=== PATIENT | female | born 1985 | race Caucasian/White ===

== ENCOUNTER → 2018-01-30 11:37 | Outpatient (REF) | payer OTHER, SELFPAY ==
[2018-01-30 20:12] LABS: Bilirubin Negative (Negative); Blood Negative (Negative); Clarity Clear; Glucose Negative (Negative); Ketones Negative (Negative); Leukocyte Esterase Negative (Negative); Nitrite Negative (Negative); Specific Gravity <= 1.005 (1.005-1.025); Urobilinogen 0.2 EU/dL (Up TO 0.2); pH 5.5 (5-8)
[2018-01-30 20:26] LABS: INR 0.9 (1.0-3.5); Prothrombin Time 9.1 sec (9.3-10.8)
[2018-01-30 20:32] LABS: Hemoglobin A1C 5.3 % (4.5-6.2)
[2018-01-30 20:37] LABS: ALT 21 U/L (12-78); AST 15 U/L (15-37); Albumin 4.1 g/dL (3.4-5.0); Alkaline Phosphatase 90 U/L (46-116); Anion Gap 8.8 mmol/L (3-11); BUN 4 mg/dL (7-18); Bacteria Rare HPF (Negative); Bilirubin, Total 0.2 mg/dL (0.2-1.0); C & S Indicated? C&S Done As Ordered; CO2 25.2 mmol/L (21.0-32.0); CREATININE 0.64 mg/dL (0.55-1.02); Calcium 9.3 mg/dL (8.5-10.1); Casts Negative LPF (Negative); Chloride 104 mmol/L (98-107); Crystals Negative HPF (Negative); Epithelial Cells Few HPF (Negative); Glucose 90 mg/dL (70-100); Mucus Negative (Negative); Potassium 4.2 mmol/L (3.5-5.1); RBC Negative (0-2); Sodium 138 mmol/L (136-145); TSH (W/Ref FT4) 0.89 uIU/mL (0.358-3.74)
[2018-01-31 16:33] LABS: Osmolality, Urine 78 mos/kg (150-1150)
[2018-01-31 16:50] LABS: Osmolality Serum 282 mos/kg (275-295)
== END ==
LOC: NCHCN 11:37
PROVIDERS: PCP Family Medicine; Visit Provider Nurse Practitioner
DX: R07.89 Other chest pain (principal); R06.00 Dyspnea, unspecified; R35.8 Other polyuria; R23.8 Other skin changes
CPT/HCPCS: 80053; 83935; 87077; 81003; 81015; 83036; 83930; 84443; 85610; 87086; 87186

== ENCOUNTER → 2018-02-03 08:56 | Outpatient (CLI) | payer OTHER, SELFPAY ==
--- NOTE | 2018-02-03 09:00 | MERGE_ITS ---
*[facility]* *[facility]* [address] [place] [address] Date of study: 02/03/2018 Transthoracic Echocardiography M-mode, complete 2D, complete spectral Doppler, and color Doppler *STUDY CONCLUSIONS* Impressions: No VSD identified. Summary: 1. Left ventricle: The cavity size was normal. Systolic function was normal. The estimated ejection fraction was 60-65%. Diastolic parameters were normal. 2. Mitral valve: There was mild regurgitation. 3. Right ventricle: The cavity size was normal. Wall thickness was normal. Systolic function was normal. 4. Atrial septum: No defect or patent foramen ovale was identified. 5. Inferior vena cava: The vessel was patent and normal in size. The respirophasic diameter changes were in the normal range (greater than or equal to 50%), consistent with normal central venous pressure. *PATIENT PRESENTATION* Height: 167.6cm ((66in) ) S/D Pressure: 119 / 26 Weight: 56.2kg ((123.7lb) ) BSA: 1.61m^2 Test start time: 09:11 AM. Test stop time: 10:11 AM. PERFORMING Unknown PERFORMING [facility] ENGAGEMENT LIAISON RT Shankar Krueger)(DUNG), [facility] ORDERING Mariann Arciniega REFERRING Mariann Arciniega *PROCEDURE DATA* Procedure information: The patient was identified by two identifiers. This study was interpreted by [facility]. Pertinent images and digital data are archived for permanent storage and are available for subsequent review. No prior study was available for comparison. Study status: Routine. Transthoracic echocardiography. M-mode, complete 2D, complete spectral Doppler, and color Doppler. A Transthoracic Echocardiogram was performed. Scanning was performed from the parasternal, apical, subcostal, and suprasternal notch acoustic windows. Images were obtained using an [id number] cardiac ultrasound machine. Image quality was adequate. Study completion: The patient tolerated the procedure well. History: PMH: Chest pain intermittent, hx of VSD, dyspnea. *CARDIAC ANATOMY* Left ventricle: The cavity size was normal. Systolic function was normal. The estimated ejection fraction was 60-65%. The transmitral flow pattern was normal. The deceleration time of the early transmitral flow velocity was normal. The pulmonary vein flow pattern was normal. The tissue Doppler parameters were normal. Diastolic parameters were normal. Aortic valve: Trileaflet. Doppler: There was no stenosis. There was no regurgitation. VTI ratio of LVOT to aortic valve: 0.74. Valve area (VTI): 2.3cm^2. Indexed valve area (VTI): 1.4cm^2/m^2. Peak velocity ratio of LVOT to aortic valve: 0.72. Valve area (Vmax): 2.2cm^2. Indexed valve area (Vmax): 1.4cm^2/m^2. Mean velocity ratio of LVOT to aortic valve: 0.77. Valve area (Vmean): 2.4cm^2. Indexed valve area (Vmean): 1.5cm^2/m^2. Mean gradient (S): 4.1mm Hg. Peak gradient (S): 7.5mm Hg. Aorta: Aortic root: The aortic root was normal in size. Ascending aorta: The ascending aorta was normal in size. Mitral valve: Doppler: There was no evidence for stenosis. There was mild regurgitation. Valve area by pressure half-time: 4.9cm^2. Indexed valve area by pressure half-time: 3cm^2/m^2. Peak gradient (D): 2.1mm Hg. Left atrium: The atrium was normal in size. Atrial septum: No defect or patent foramen ovale was identified. Right ventricle: The cavity size was normal. Wall thickness was normal. Systolic function was normal. Pulmonic valve: Doppler: There was no evidence for stenosis. There was mild regurgitation. Tricuspid valve: Doppler: There was mild regurgitation. Pulmonary artery: Poorly visualized. Pulmonary systolic pressure was in the range of 25mm Hg to 35mm Hg. Right atrium: The atrium was normal in size. Pericardium: There was no pericardial effusion. Systemic veins: Inferior vena cava: Well visualized. The vessel was patent and normal in size. The respirophasic diameter changes were in the normal range (greater than or equal to 50%), consistent with normal central venous pressure. Baseline ECG: Normal sinus rhythm. Measurements Left ventricle Value Reference LV ID, ED, PLAX 4.3 cm 3.5 - 6.0 LV ID, ES, PLAX 2.9 cm 2.1 - 4.0 LV PW thickness, ED, PLAX 0.8 cm LV end-diastolic volume, 1-p A2C 70 ml LV ejection fraction, 1-p A2C 67 % LV end-diastolic volume, 1-p A4C 75 ml LV ejection fraction, 1-p A4C 62 % LV e', lateral 0.201 m/sec LV E/e', lateral 4 LV e', medial 0.133 m/sec LV E/e', medial 5 LV e', average 0.167 m/sec LV E/e', average 4 Ventricular septum Value Reference IVS thickness, ED, PLAX 0.8 cm LVOT Value Reference LVOT ID, A-P 2.0 cm LVOT area 3.1 cm^2 LVOT peak velocity, S 0.99 m/sec LVOT mean velocity, S 0.74 m/sec LVOT VTI, S 19.9 cm LVOT peak gradient, S 3.9 mm Hg LVOT mean gradient, S 2.4 mm Hg Stroke volume (SV), LVOT DP 62 ml Stroke index (SV/bsa), LVOT DP 38 ml/m^2 Aortic valve Value Reference Aortic valve peak velocity, S 1.4 m/sec Aortic valve mean velocity, S 0.97 m/sec Aortic valve VTI, S 26.8 cm Aortic mean gradient, S 4.1 mm Hg Aortic peak gradient, S 7.5 mm Hg VTI ratio, LVOT/AV 0.74 Aortic valve area, VTI 2.3 cm^2 Velocity ratio, peak, LVOT/AV 0.72 Aortic valve area, peak velocity 2.2 cm^2 Velocity ratio, mean, LVOT/AV 0.77 Aortic valve area, mean velocity 2.4 cm^2 Aortic valve area/bsa, mean velocity 1.5 cm^2/m^2 Aorta Value Reference Aortic root ID, ED 2.6 cm Ascending aorta ID, A-P, S 2.5 cm RVOT Value Reference RVOT VTI, S 20.0 cm Left atrium Value Reference LA ID, A-P, ES 1.9 cm LA ID/bsa, A-P 1.2 cm/m^2 <=2.2 LA area, ES, A4C 12.1 cm^2 8.8 - 23.4 LA area, ES, A2C 11 cm^2 LA volume/bsa, ES, 1-p A4C 17 ml/m^2 LA volume, ES, 2-p 22 ml LA volume/bsa, ES, 2-p 14 ml/m^2 LA/aortic root ratio 0.73 Mitral valve Value Reference Mitral E-wave peak velocity 0.72 m/sec Mitral A-wave peak velocity 0.47 m/sec Mitral deceleration time 155 ms 150 - 230 Mitral pressure half-time 45 ms Mitral peak gradient, D 2.1 mm Hg Mitral E/A ratio, peak 1.53 Mitral valve area, PHT, DP 4.9 cm^2 Pulmonary veins Value Reference Pulmonary vein peak velocity, S 0.63 m/sec Pulmonary vein peak velocity, D 0.86 m/sec Pulmonary vein velocity ratio, peak, 0.73 S/D Pulmonary vein A-wave reversal peak 0.44 m/sec velocity Pulmonary vein A-wave reversal 144 ms duration Tricuspid valve Value Reference Tricuspid regurg peak velocity 2.5 m/sec Tricuspid peak RV-RA gradient 25.5 mm Hg Right atrium Value Reference RA area, ES, A4C 11.2 cm^2 8.3 - 19.5 Legend: (L) and (H) bertha values outside specified reference range. I have personally reviewed the images and have reviewed and edited the reported findings. Electronically signed by Chucky Bernal MD 02/03/2018 16:50
== END ==
PROVIDERS: PCP Family Medicine; Visit Provider Nurse Practitioner
DX: R07.9 Chest pain, unspecified (principal); R06.09 Other forms of dyspnea; I34.0 Nonrheumatic mitral (valve) insufficiency
CPT/HCPCS: 93306

== ENCOUNTER 2018-10-15 13:26 | Outpatient (REF) | payer SELFPAY ==
[2018-10-17 08:45] LABS: Prolactin 53.7 ng/ml
== END 2018-10-15 13:46 ==
LOC: LBN 13:26
PROVIDERS: PCP Family Medicine; Visit Provider Nurse Practitioner Psychiatric/Mental Health
DX: E22.1 Hyperprolactinemia (principal)
CPT/HCPCS: 84146

== ENCOUNTER 2020-07-22 15:23 | Outpatient (REF) | payer BC, SELFPAY ==
[2020-07-22 21:30] LABS: HCT 35.2 % (36.0-46.0); HGB 11.8 g/dL (11.2-15.7); MCH 29.9 pg (27.0-33.0); MCHC 33.5 % (32.0-36.0); MCV 89.1 fL (80-95); MPV 12.5 fL (8.0-11.0); Platelet Count 198 10^3/uL (130-400); RBC 3.95 10^6/uL (3.93-5.22); RDW 12.3 % (11.7-14.6); RDW-SD 40.7 fL; WBC 5.13 10^3/uL (4.4-10.8)
== END 2020-07-22 15:24 | disposition home or self-care (01) ==
LOC: NCHCN 15:23
PROVIDERS: PCP Family Medicine; Visit Provider Family Medicine
DX: D50.9 Iron deficiency anemia, unspecified (principal)
CPT/HCPCS: 85027

== ENCOUNTER 2021-02-10 17:11 | Outpatient (REF) | payer MEDICAID, SELFPAY ==
[2021-02-11 14:32] LABS: COVID-19 RT-PCR UVMMC Result Negative (Negative)
== END 2021-02-10 17:12 | disposition home or self-care (01) ==
LOC: NCHCN 17:11
PROVIDERS: PCP Family Medicine; Visit Provider Family Medicine
DX: Z20.822 Contact with and (suspected) exposure to COVID-19 (principal)
CPT/HCPCS: U0003

== ENCOUNTER 2021-04-17 13:34 | Outpatient (REF) | payer MEDICARE, MEDICAID, SELFPAY ==
[2021-04-17 22:26] LABS: Abs Immature Grans 0.02 10^3/uL (0.0-0.06); Absolute Basophil Count 0.06 10^3/uL (0.0-0.2); Absolute Eosinophil Count 0.33 10^3/uL (0.0-0.7); Absolute Lymphocyte Count 1.99 10^3/uL (1.2-3.4); Absolute Monocyte Count 0.57 10^3/uL (0.1-0.8); Absolute Neutrophil Count 3.27 10^3/uL (1.2-6.7); Eosinophils % 5.3; HCT 37.1 % (36.0-46.0); HGB 11.9 g/dL (11.2-15.7); Immature Grans % 0.3; Lymphocytes % 31.9; MCH 29.5 pg (27.0-33.0); MCHC 32.1 % (32.0-36.0); MCV 92.1 fL (80-95); Monocytes % 9.1; Neutrophils % 52.4; Nucleated RBC 0 %; Platelet Count 228 10^3/uL (130-400); RBC 4.03 10^6/uL (3.93-5.22); RDW 12.7 % (11.7-14.6); RDW-SD 43.3 fL; WBC 6.24 10^3/uL (4.4-10.8)
[2021-04-17 22:41] LABS: Iron 134 ug/dL (50-170); Total Iron Binding Capacity 382 ug/dL (250-450); Transferrin Sat 35 % (15-50)
[2021-04-17 22:50] LABS: ALT 21 U/L (14-59); AST 19 U/L (15-37); Alkaline Phosphatase 77 U/L (46-116); BUN 6 mg/dL (7-18); Bilirubin, Total 0.4 mg/dL (0.2-1.0); CREATININE 0.6 mg/dL (0.55-1.02); Calcium 9.4 mg/dL (8.5-10.1); Chloride 103 mmol/L (98-107); Ferritin 68 ng/mL (8-252); Glucose 78 mg/dL (74-106); Potassium 4.1 mmol/L (3.5-5.1); Sodium 142 mmol/L (136-145); TSH (W/Ref FT4) 1.48 uIU/mL (0.36-3.74); Total Protein 7.6 g/dL (6.4-8.2)
[2021-04-18 18:03] LABS: Prolactin 10.7 ng/mL (See Table)
== END 2021-04-17 13:35 | disposition home or self-care (01) ==
LOC: NCHCN 13:34
PROVIDERS: PCP Family Medicine; Visit Provider Nurse Practitioner Family
DX: R53.83 Other fatigue (principal); N39.46 Mixed incontinence; K58.9 Irritable bowel syndrome, unspecified; E22.1 Hyperprolactinemia; Z00.00 Encounter for general adult medical examination without abnormal findings
CPT/HCPCS: 80053; 82728; 83540; 83550; 84146; 84443; 85025

== ENCOUNTER 2021-05-19 11:48 | Outpatient (REF) | payer MEDICARE, MEDICAID, SELFPAY ==
--- NOTE | 2021-05-19 11:15 | SKI_PTH ---
PATIENT: Beatris Ventura LOC: [facility]#:[id number] AGE/SX: 35/F ROOM: RE05/19/[address]: Mraa Blackmon : 1985 BED: DIS: 05/19/2021 SPEC #: [id number] RECD: 05/19/21 15:19 STATUS: RICKEY REQ #: [id number] RICH: 05/19/21 11:[address]: Mara Blackmon DEPT: Surgical Specimen RECD BY: Katy Corral ENTERED: 05/19/21 15:23 SP TYPE: DARSHAN NAGY DR: Toney Estrada Tissues: 1 - SKIN BIOPSY(SHAVE/PUNCH) Procedures: SKIN LEVEL 4 Comments: [id number]
== END 2021-05-19 11:49 | disposition home or self-care (01) ==
LOC: NCHCN 11:48
PROVIDERS: PCP Family Medicine; Visit Provider Nurse Practitioner Family
DX: D22.5 Melanocytic nevi of trunk (principal)
CPT/HCPCS: 88305

== ENCOUNTER 2021-09-12 05:12 | Outpatient (CLI) | payer MEDICARE, MEDICAID, SELFPAY ==
--- NOTE | 2021-09-12 11:39 | W.NUTRFU ---
Date of service: 09/12/21 Time of Service: 11:39 Nutrition Note NOTE: Viki returns for weight management and IBS symptom treatment. Wt: 142 lbs, down 5 lbs in last month. Viki reports eating [id number] kcal, 80-100 g carbs, 60-70 g protein, 45-55 g protein daily. She has started to eat 3 times daily and includes a protein shake daily. She follows a vegan diet. She reports increased energy and has been working out daily for 1 hour. She continues to supplement her diet with MVI, D, B12 and iron. She reports IBS symptoms in 3 out of last 7 days. Overall, Viki feels better but wants to lose weight. Her goal weight is 130 lbs. Follow up appt. scheduled for 10/17/21 at 11 am. Time Spent in Nutritional Counseling and Treatment: 20
== END 2021-09-12 05:13 | disposition home or self-care (01) ==
LOC: DS 05:12
PROVIDERS: PCP Family Medicine; Visit Provider Dietitian, Registered

== ENCOUNTER 2021-10-17 02:19 | Outpatient (CLI) | payer MEDICARE, MEDICAID, SELFPAY ==
--- NOTE | 2021-10-17 12:13 | W.NUTRFU ---
Date of service: 10/17/21 Time of Service: 12:13 Nutrition Note NOTE: Viki returns for weight management education and IBS symptom management. No change in weight since last visit, IBS symtpoms have not improved. Continues to have bloating and cramping after meals. Wt: 142 lbs. Diet recall indicates Viki is following 3325-9374 kcal, with 60-70 g protein, 45-55 g fat. Avoiding trigger foods. She walks 4-5 miles daily. No new labs. Lack of weight loss indicates that weight is being affected by other metabolic imbalances as meeting macronutrient and exercise requirements. Recommend follow up with PCP to get updated labs. Recommend checking TSH, A1C. Suspect high inflammatory markers may be inhibiting her from losing weight. Viki reports a lot of stress lately and having to [place] hours [place] to remove herself out of her toxic family relationships. No follow up planned at this time. Time Spent in Nutritional Counseling and Treatment: 15
== END 2021-10-17 02:20 | disposition home or self-care (01) ==
LOC: DS 02:19
PROVIDERS: PCP Family Medicine; Visit Provider Dietitian, Registered

== ENCOUNTER 2021-11-21 15:19 | Outpatient (REF) | payer MEDICARE, MEDICAID, SELFPAY ==
[2021-11-21 15:09] LABS: Abs Immature Grans 0.02 10^3/uL (0.0-0.06); Absolute Basophil Count 0.05 10^3/uL (0.0-0.2); Absolute Eosinophil Count 0.32 10^3/uL (0.0-0.7); Absolute Lymphocyte Count 1.65 10^3/uL (1.2-3.4); Absolute Monocyte Count 0.36 10^3/uL (0.1-0.8); Absolute Neutrophil Count 2.57 10^3/uL (1.2-6.7); Eosinophils % 6.4; HCT 39.6 % (36.0-46.0); HGB 12.8 g/dL (11.2-15.7); Immature Grans % 0.4; Lymphocytes % 33.2; MCH 29.2 pg (27.0-33.0); MCHC 32.3 % (32.0-36.0); MCV 90 fL (80-95); MPV 11.8 fL (8.0-11.0); Monocytes % 7.2; Neutrophils % 51.8; Platelet Count 272 10^3/uL (130-400); RBC 4.39 10^6/uL (3.93-5.22); RDW 13.2 % (11.7-14.6); RDW-SD 43.8 fL; WBC 4.97 10^3/uL (4.4-10.8)
[2021-11-21 15:26] LABS: Iron 60 ug/dL (50-170); Total Iron Binding Capacity 418 ug/dL (250-450); Transferrin Sat 14 % (15-50)
[2021-11-21 16:30] LABS: FREE T4 1.28 ng/dL (0.76-1.46); Ferritin 36 ng/mL (8-252); TSH 1.49 uIU/mL (0.36-3.74)
[2021-11-21 17:39] LABS: Vitamin B12 702 pg/mL (193-986)
[2021-11-21 22:53] LABS: T3,Free 4.7 pg/mL (2.8-5.3)
[2021-11-23 05:44] LABS: Vitamin D 25 Total 59.8 ng/mL (30-100)
== END 2021-11-21 15:20 | disposition home or self-care (01) ==
LOC: NCHCN 15:19
PROVIDERS: PCP Family Medicine; Visit Provider Nurse Practitioner Family
DX: D50.9 Iron deficiency anemia, unspecified (principal); G47.62 Sleep related leg cramps; R53.83 Other fatigue; K58.9 Irritable bowel syndrome, unspecified; R51.9 Headache, unspecified; N39.46 Mixed incontinence; J45.20 Mild intermittent asthma, uncomplicated
CPT/HCPCS: 82306; 82607; 82728; 83540; 83550; 84439; 84443; 84481; 85025

== ENCOUNTER 2022-10-26 12:28 | Outpatient (REF) | payer MEDICARE, MEDICAID, SELFPAY ==
[2022-10-26 15:38] LABS: Abs Immature Grans 0.01 10^3/uL (0.0-0.06); Absolute Basophil Count 0.08 10^3/uL (0.0-0.2); Absolute Eosinophil Count 0.44 10^3/uL (0.0-0.7); Absolute Lymphocyte Count 1.28 10^3/uL (1.2-3.4); Absolute Monocyte Count 0.51 10^3/uL (0.1-0.8); Absolute Neutrophil Count 5.54 10^3/uL (1.2-6.7); Eosinophils % 5.6; HCT 36.8 % (36.0-46.0); HGB 12.1 g/dL (11.2-15.7); Immature Grans % 0.1; Lymphocytes % 16.3; MCHC 32.9 % (32.0-36.0); MCV 88 fL (80-95); MPV 12.1 fL (8.0-11.0); Monocytes % 6.5; Neutrophils % 70.5; Platelet Count 238 10^3/uL (130-400); RBC 4.17 10^6/uL (3.93-5.22); RDW 12.6 % (11.7-14.6); RDW-SD 40.7 fL; WBC 7.86 10^3/uL (4.4-10.8)
[2022-10-26 16:16] LABS: ALT 15 U/L (14-59); AST 14 U/L (15-37); Albumin 4.1 g/dL (3.4-5.0); Alkaline Phosphatase 87 U/L (46-116); Anion Gap 12.2 mmol/L (3-11); BUN 3 mg/dL (7-18); Bilirubin, Total 0.3 mg/dL (0.2-1.0); CO2 24.8 mmol/L (21.0-32.0); CREATININE 0.4 mg/dL (0.55-1.02); Calcium 9.2 mg/dL (8.5-10.1); Chloride 101 mmol/L (98-107); Estimated GFR 133.11 (mL/min/1.73m2); Ferritin 56 ng/mL (8-252); Glucose 80 mg/dL (74-106); Potassium 3.4 mmol/L (3.5-5.1); Sodium 138 mmol/L (136-145); Total Protein 7.9 g/dL (6.4-8.2)
[2022-10-26 17:21] LABS: Iron 46 ug/dL (50-170); Total Iron Binding Capacity 372 ug/dL (250-450); Transferrin Sat 12 % (15-50)
[2022-10-28 12:48] LABS: HIV-1/2 Ag & Ab Screen Negative (Negative)
[2022-10-29 11:23] LABS: Hepatitis C Ab w Rflx HCV PCR Negative (Negative)
== END 2022-10-26 12:29 | disposition home or self-care (01) ==
LOC: NCHCN 12:28
PROVIDERS: PCP Family Medicine; Visit Provider Nurse Practitioner Family
DX: D50.9 Iron deficiency anemia, unspecified (principal); F43.10 Post-traumatic stress disorder, unspecified; M79.7 Fibromyalgia; L50.5 Cholinergic urticaria; N64.4 Mastodynia; J45.20 Mild intermittent asthma, uncomplicated; K58.9 Irritable bowel syndrome, unspecified; Z11.4 Encounter for screening for human immunodeficiency virus [HIV]; Z11.59 Encounter for screening for other viral diseases
CPT/HCPCS: 80053; 86803; 87389; 82728; 83540; 83550; 85025

== ENCOUNTER 2023-11-08 14:52 | Outpatient (REF) | payer MEDICARE, MEDICAID, SELFPAY ==
--- NOTE | 2023-11-08 12:45 | PAPFT_PTH ---
PATIENT: Beatris Ventura LOC: [facility]#:[id number] AGE/SX: 37/F ROOM: RE11/08/[address]: Mara Blackmon : 1985 BED: DIS: 11/08/2023 SPEC #: [id number] RECD: 11/11/23 13:13 STATUS: RICKEY REQ #: [id number] RICH: 11/08/23 12:[address]: Mara Blackmon DEPT: [facility] Cytology RECD BY: Katy Corral ENTERED: 11/11/23 13:14 SP TYPE: PAPFT OTHR DR: Toney Estrada Tissues: 1 - CX/ENDOCX FOR PAP SMEARS Procedures: PAP THIN PREP/[facility] Screening HPV DNA PROBE Comments: [id number] (CHLAMYDIA/GC)
[2023-11-08 21:09] LABS: Abs Immature Grans 0.01 10^3/uL (0.0-0.06); Absolute Basophil Count 0.07 10^3/uL (0.0-0.2); Absolute Eosinophil Count 0.19 10^3/uL (0.0-0.7); Absolute Lymphocyte Count 2.14 10^3/uL (1.2-3.4); Absolute Monocyte Count 0.42 10^3/uL (0.1-0.8); Absolute Neutrophil Count 2.23 10^3/uL (1.2-6.7); Basophils % 1.4 %; Eosinophils % 3.8 %; HGB 12.8 g/dL (11.2-15.7); Immature Grans % 0.2 %; Lymphocytes % 42.3 %; MCH 29.8 pg (27.0-33.0); MCHC 32.8 % (32.0-36.0); MCV 91 fL (80-95); MPV 11.9 fL (8.0-11.0); Monocytes % 8.3 %; Platelet Count 233 10^3/uL (130-400); RDW 12.7 % (11.7-14.6); RDW-SD 41.5 fL; WBC 5.06 10^3/uL (4.4-10.8)
[2023-11-08 21:30] LABS: Iron 99 ug/dL (50-170); Total Iron Binding Capacity 346 ug/dL (250-450); Transferrin Sat 29 % (15-50)
[2023-11-08 21:34] LABS: Ferritin 77 ng/mL (8-252)
[2023-11-11 10:50] LABS: HIV-1/2 Ag & Ab Screen Negative (Negative)
[2023-11-11 11:12] LABS: Hepatitis C Ab w Rflx HCV PCR Negative (Negative)
[2023-11-11 14:19] LABS: Syphilis Serology (RPR) Negative (Negative)
[2023-11-12 15:15] LABS: Chlamydia Result Negative (Negative); GC Result Negative (Negative)
== END 2023-11-08 14:53 | disposition home or self-care (01) ==
LOC: NCHCN 14:52
PROVIDERS: PCP Family Medicine; Visit Provider Nurse Practitioner Family
DX: D50.9 Iron deficiency anemia, unspecified (principal); Z12.4 Encounter for screening for malignant neoplasm of cervix
CPT/HCPCS: 86803; 87389; 87491; 87591; 88142; 82728; 83540; 83550; 85025; 86592; 87624

== ENCOUNTER 2024-11-09 16:06 | Outpatient (REF) | payer MEDICARE, MEDICAID, SELFPAY ==
[2024-11-09 21:33] LABS: Abs Immature Grans 0.01 10^3/uL (0.0-0.06); Absolute Basophil Count 0.07 10^3/uL (0.0-0.2); Absolute Eosinophil Count 0.04 10^3/uL (0.0-0.7); Absolute Lymphocyte Count 1.44 10^3/uL (1.2-3.4); Absolute Monocyte Count 0.39 10^3/uL (0.1-0.8); Absolute Neutrophil Count 3.26 10^3/uL (1.2-6.7); Basophils % 1.3 %; Eosinophils % 0.8 %; HCT 36.6 % (36.0-46.0); HGB 11.9 g/dL (11.2-15.7); Immature Grans % 0.2 %; Lymphocytes % 27.6 %; MCH 29.9 pg (27.0-33.0); MCHC 32.5 % (32.0-36.0); MCV 92 fL (80-95); MPV 10.9 fL (8.0-11.0); Monocytes % 7.5 %; Neutrophils % 62.6 %; Platelet Count 300 10^3/uL (130-400); RBC 3.98 10^6/uL (3.93-5.22); RDW 12.1 % (11.7-14.6); RDW-SD 41.1 fL; WBC 5.21 10^3/uL (4.4-10.8)
[2024-11-09 21:41] LABS: Iron 87 ug/dL (50-170); Total Iron Binding Capacity 359 ug/dL (250-450); Transferrin Sat 24 % (15-50)
[2024-11-09 21:55] LABS: Ferritin 47 ng/mL (8-252); TSH (W/Ref FT4) 1.02 uIU/mL (0.36-3.74)
== END 2024-11-09 16:07 | disposition home or self-care (01) ==
LOC: NCHCN 16:06
PROVIDERS: PCP Family Medicine; Visit Provider Nurse Practitioner Family
DX: D50.9 Iron deficiency anemia, unspecified (principal); R53.83 Other fatigue
CPT/HCPCS: 82728; 83540; 83550; 84443; 85025

== ENCOUNTER 2025-01-28 19:19 | Outpatient (REF) | payer MEDICARE, MEDICAID, SELFPAY ==
[2025-01-28 20:40] LABS: Abs Immature Grans 0.01 10^3/uL (0.0-0.06); HCT 34.1 % (36.0-46.0); HGB 11.0 g/dL (11.2-15.7); Immature Grans % 0.2 %; MCH 29.1 pg (27.0-33.0); MCHC 32.3 % (32.0-36.0); MCV 90 fL (80-95); MPV 10.8 fL (8.0-11.0); Platelet Count 322 10^3/uL (130-400); RBC 3.78 10^6/uL (3.93-5.22); RDW 12.2 % (11.7-14.6); RDW-SD 39.9 fL; WBC 6.56 10^3/uL (4.4-10.8)
[2025-01-28 21:02] LABS: ALT 15 U/L (14-59); AST 16 U/L (15-37); Albumin 3.9 g/dL (3.4-5.0); Alkaline Phosphatase 61 U/L (46-116); Anion Gap 10.1 mmol/L (3-11); BUN 4 mg/dL (7-18); Bilirubin, Total 0.3 mg/dL (0.2-1.0); CO2 26.9 mmol/L (21.0-32.0); Calcium 9.1 mg/dL (8.5-10.1); Chloride 105 mmol/L (98-107); Estimated GFR 130.65 (mL/min/1.73m2); Glucose 93 mg/dL (74-106); Potassium 3.8 mmol/L (3.5-5.1); Sodium 142 mmol/L (136-145); TSH (W/Ref FT4) 0.73 uIU/mL (0.36-3.74); Total Protein 7.6 g/dL (6.4-8.2)
[2025-01-29 18:45] LABS: FSH 12.5 mIU/mL (See Note)
[2025-01-30 13:40] LABS: Bacterial Vaginosis (BV) Positive (Negative); Candida glabrata Negative (Negative); Candida species group Positive (Negative); Chlamydia Result Negative (Negative); GC Result Negative (Negative)
== END 2025-01-28 19:20 | disposition home or self-care (01) ==
LOC: NCHCN 19:19
PROVIDERS: PCP Family Medicine; Visit Provider Family Medicine
DX: R61 Generalized hyperhidrosis (principal); R10.2 Pelvic and perineal pain
CPT/HCPCS: 80053; 81513; 87481; 87491; 87591; 87661; 82670; 83001; 84146; 84443; 85025